=== PATIENT | female | born 1995 | race Caucasian/White ===

== ENCOUNTER 2020-08-20 05:28 | Emergency (ER) | payer OTHER, BC, SELFPAY ==
[2020-08-20 05:34] VITALS: BP 138/97; PULSE 100; RESP 18; TEMP 37.2; O2SAT 99
--- NOTE | 2020-08-20 05:42 | ED.GENADULT ---
HPI - General Adult General Chief complaint: Ear Stated complaint: right ear infection Time Seen by Provider: 08/20/20 05:37 History of Present Illness HPI narrative: Patient 22-year-old female presents emergency department with chief complaint of right ear pain. 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 Patient states that over the last couple of days she has had pain and swelling in the canal of her right ear and reports that her ear is exquisitely painful the patient states this feels just like whenever she has had urine for for the past patient does report that she has had drainage out of the right ear as well. The patient denies fever denies runny nose denies sore throat. Related Data Allergies Allergy/AdvReac Type Severity Reaction Status Date / Time No Known Allergies Allergy Verified 08/20/20 05:43 Review of Systems Review of Systems: Narrative: A 10 system review of systems was completed on the patient and is negative except for what is stated in the HPI. Nursing and ancillary documentation was reviewed. PMFSH Comments Past medical history significant for multiple ear infections Surgical history is significant for myringotomy and tubes Social history the patient denies illicit drug use Exam Narrative: Exam Narrative: GENERAL: Well-appearing, well-nourished, and in no acute distress. HEAD: Normocephalic, atraumatic. EYES: PERRLA and EOMI. ENT: Nares clear, no rhinorrhea or epistaxis. Mucous membranes moist. Right tympanic membrane there is erythema there is edema of the canal on the right here there is purulent material in the canal. Left ear is within normal limits NECK: Supple. CHEST: Clear to auscultation. No respiratory distress. HEART: Regular rate and rhythm. No murmur heard. Normal peripheral pulses. ABDOMEN: Soft, nontender, nondistended, normal active bowel sounds. EXTREMITIES: Normal range of motion. No edema. SKIN: Warm, dry, no rash. NEURO: No focal deficits. Alert and oriented x3. PSYCH: Normal mood and affect. Discharge Plan Discharge Clinical Impression: Otitis externa, Otitis media Patient Disposition: Home, Self-Care Condition: Stable Instructions: Antibiotic Form, Ear Infection (AC) Prescriptions: New ofloxacin 0.3 % drops 10 drp RIGHT EAR BID 14 Days Qty: 10 RF: 0 amoxicillin-pot clavulanate [Augmentin] 875-125 mg tablet 1 tablet PO Q12H 10 Days Qty: 20 RF: 0 Follow-up/Referrals: Alysia,Radha Villa APRN [Primary Care Provider] - Time of Disposition: 05:47
== END 2020-08-20 06:10 | disposition home or self-care (01) ==
LOC: ANHED 05:51
PROVIDERS: Emergency Provider Emergency Medicine; PCP Nurse Practitioner Family
DX: H60.91 Unspecified otitis externa, right ear (principal); H66.91 Otitis media, unspecified, right ear
CPT/HCPCS: 99283

== ENCOUNTER 2021-09-18 13:47 | Outpatient (CLI) | payer OTHER, SELFPAY ==
[2021-09-20 13:15] LABS: FSH 1.9 mIU/mL (***); LH 4.8 mIU/mL (***); Progesterone 10.2 ng/mL (***)
== END 2021-09-18 13:48 | disposition home or self-care (01) ==
PROVIDERS: PCP Nurse Practitioner Family; Visit Provider Obstetrics & Gynecology
DX: N92.6 Irregular menstruation, unspecified (principal)
CPT/HCPCS: 36415; 83001; 83002; 84144